=== PATIENT | female | born 1960 | race Asian ===

== ENCOUNTER 2016-08-12 10:43 | Emergency (ER) | payer OTHER ==
[~2016-08-12] VITALS: Ht 162.6 cm; Wt 122.5 kg
[~2016-08-12 10:43] MED LIST: ACTOS15 MG OR; AMOX500C85 PO; BENICAR HCT1 TA1 PO; DICL1GEL2 TOP; DULO30CA OR; KETOROLAC15 MG/ML IJ; LORCET OR; MEDROL DOSEPAK4 MG OR; PRINIVIL10 MG OR; RANI150T78 PO; TRIBENZO1 PO; TRIBENZO4 PO; ULTRAM50 MG OR
[2016-08-12] MEDS ORDERED: METOPROLOL25 M1 OR (11:07)
[2016-08-12 11:34] LABS: PLATELET COUNT 177 K/uL (152-353)
[2016-08-12 11:37] LABS: POTASSIUM 3.5 mmol/L (3.6-5.2); SODIUM 137 mmol/L (136-145)
[2016-08-12 13:08] VITALS: BP 140/86; TEMP 98
== END 2016-08-12 13:08 | disposition home or self-care (01) ==
LOC: ED 10:43
DX: J20.9 Acute bronchitis, unspecified (principal)
CPT/HCPCS: 36415; 80053; 83880; 85027; 87081; 87804; 87880; 99283

== ENCOUNTER 2016-08-16 15:52 | Outpatient (CLI) | payer OTHER ==
[~2016-08-16 15:52] MED LIST changes: +METOPROLOL25 M1 OR
[2016-08-16 16:45] LABS: PLATELET COUNT 210 K/uL (152-353)
[2016-08-16 17:09] LABS: POTASSIUM 3.7 mmol/L (3.6-5.2); SODIUM 139 mmol/L (136-145)
== END 2016-08-16 19:17 | disposition home or self-care (01) ==
LOC: LAB 15:52
PROVIDERS: Nurse Practitioner Family
DX: I10 Essential (primary) hypertension (principal); E11.59 Type 2 diabetes mellitus with other circulatory complications
CPT/HCPCS: 80053; 80061; 83036; 84439; 84443; 85027

== ENCOUNTER 2016-09-07 09:21 | Outpatient (CLI) | payer OTHER | END 2016-09-07 19:05 | disposition home or self-care (01) | LOC: MAMMO 09:21 | DX: Z12.31 Encounter for screening mammogram for malignant neoplasm of breast (principal) | CPT/HCPCS: G0202-TC ==

== ENCOUNTER 2016-10-04 12:20 | Outpatient (CLI) | payer OTHER | END 2016-10-04 13:30 | disposition home or self-care (01) | LOC: RAD 12:20 | DX: R05 Cough (principal); E11.9 Type 2 diabetes mellitus without complications ==

== ENCOUNTER 2016-10-05 14:19 | Outpatient (CLI) | payer OTHER ==
[2016-10-05 15:16] LABS: PLATELET COUNT 191 K/uL (152-353)
[2016-10-05 17:08] LABS: POTASSIUM 4.2 mmol/L (3.6-5.2); SODIUM 139 mmol/L (136-145)
== END 2016-10-05 15:30 | disposition home or self-care (01) ==
LOC: MAMMO 14:19 → LAB 14:19 → MAMMO 15:30
PROVIDERS: Nurse Practitioner Family
DX: E11.9 Type 2 diabetes mellitus without complications (principal); I10 Essential (primary) hypertension; E66.01 Morbid (severe) obesity due to excess calories; K21.9 Gastro-esophageal reflux disease without esophagitis; E55.9 Vitamin D deficiency, unspecified; R92.8 Other abnormal and inconclusive findings on diagnostic imaging of breast
CPT/HCPCS: 80053; 80061; 81000; 82043; 82306; 82570; 83036; 83735; 84439; 84443; 84550; 85027; G0204-TC

== ENCOUNTER 2016-10-09 09:17 | Emergency (ER) | payer OTHER ==
[~2016-10-09] VITALS: Ht 165.1 cm; Wt 122.5 kg
[2016-10-09 09:25] VITALS: TEMP 98.6
[2016-10-09] MEDS ORDERED: CARAFATE1 GM PO (09:43)
[2016-10-09] MEDS ORDERED: NEURONTIN 100M100 MG OR (09:44)
[2016-10-09] MEDS ORDERED: CEFDINIR300 MG OR (09:56)
[2016-10-09 10:52] LABS: PARTIAL THROMBOPLASTIN TIME 24.4 SECONDS (24.5-33.6)
[2016-10-09 10:54] LABS: POTASSIUM 3.6 mmol/L (3.6-5.2); SODIUM 139 mmol/L (136-145)
[2016-10-09 10:57] LABS: PLATELET COUNT 179 K/uL (152-353)
[2016-10-09 12:23] VITALS: BP 138/82
== END 2016-10-09 12:23 | disposition home or self-care (01) ==
LOC: ED 09:17
DX: K21.9 Gastro-esophageal reflux disease without esophagitis (principal); K22.4 Dyskinesia of esophagus
CPT/HCPCS: 36591; 80053; 82550; 84484; 85027; 85610; 85730; 93005; 99283; J1885

== ENCOUNTER 2016-11-23 08:10 | Outpatient (CLI) | payer OTHER ==
[~2016-11-23 08:10] MED LIST changes: +CARAFATE1 GM PO; +CEFDINIR300 MG OR; +NEURONTIN 100M100 MG OR
== END 2016-11-23 19:30 | disposition home or self-care (01) ==
LOC: RAD 08:10
DX: K44.9 Diaphragmatic hernia without obstruction or gangrene (principal); R10.13 Epigastric pain; K21.9 Gastro-esophageal reflux disease without esophagitis; R13.12 Dysphagia, oropharyngeal phase

== ENCOUNTER 2016-12-08 14:03 | Outpatient (CLI) | payer OTHER ==
[2016-12-08 14:34] LABS: PLATELET COUNT 191 K/uL (152-353)
[2016-12-08 15:09] LABS: POTASSIUM 3.9 mmol/L (3.6-5.2); SODIUM 138 mmol/L (136-145)
== END 2016-12-08 15:05 | disposition home or self-care (01) ==
LOC: LAB 14:03
PROVIDERS: Nurse Practitioner Family
DX: E11.59 Type 2 diabetes mellitus with other circulatory complications (principal); I10 Essential (primary) hypertension; E55.9 Vitamin D deficiency, unspecified; K21.9 Gastro-esophageal reflux disease without esophagitis; E66.01 Morbid (severe) obesity due to excess calories; E11.9 Type 2 diabetes mellitus without complications; Z79.899 Other long term (current) drug therapy; Z51.81 Encounter for therapeutic drug level monitoring
CPT/HCPCS: 80053; 80061; 82306; 82607; 83036; 84436; 84443; 85027

== ENCOUNTER 2017-03-13 10:18 | Outpatient (CLI) | payer OTHER ==
[2017-03-13 10:45] LABS: PLATELET COUNT 161 K/uL (152-353)
[2017-03-13 11:26] LABS: POTASSIUM 3.4 mmol/L (3.6-5.2); SODIUM 138 mmol/L (136-145)
== END 2017-03-13 11:40 | disposition home or self-care (01) ==
LOC: LABW 10:18
PROVIDERS: Podiatrist
DX: Z01.810 Encounter for preprocedural cardiovascular examination (principal); Z01.811 Encounter for preprocedural respiratory examination; Z01.812 Encounter for preprocedural laboratory examination; E11.9 Type 2 diabetes mellitus without complications
CPT/HCPCS: 36415; 80053; 83036; 85027; 93005

== ENCOUNTER 2017-09-09 21:40 | Emergency (ER) | payer OTHER ==
[~2017-09-09] VITALS: Ht 162.6 cm; Wt 77.1 kg
[2017-09-09] MEDS ORDERED: HYDR10TA47A PO (22:12)
[2017-09-09] MEDS ORDERED: FLONASE AL50 MCG/ACT (22:13)
[2017-09-09] MEDS ORDERED: NEURONTIN800 MG PO (22:14)
[2017-09-09 23:25] VITALS: BP 143/67; TEMP 97.9
== END 2017-09-09 23:26 | disposition home or self-care (01) ==
LOC: ED 21:40
DX: M17.12 Unilateral primary osteoarthritis, left knee (principal); M19.072 Primary osteoarthritis, left ankle and foot
CPT/HCPCS: 99283

== ENCOUNTER 2018-06-21 08:04 | Outpatient (CLI) | payer OTHER ==
[~2018-06-21 08:04] MED LIST changes: +FLONASE AL50 MCG/ACT; +HYDR10TA47A PO; +NEURONTIN800 MG PO
[2018-06-21 08:50] LABS: POTASSIUM 3.6 mmol/L (3.6-5.2)
[2018-06-21 08:53] LABS: PLATELET COUNT 190 K/uL (152-353)
== END 2018-06-21 19:22 | disposition home or self-care (01) ==
LOC: LABW 08:04
PROVIDERS: Podiatrist
DX: E11.41 Type 2 diabetes mellitus with diabetic mononeuropathy (principal); Z01.810 Encounter for preprocedural cardiovascular examination; Z01.811 Encounter for preprocedural respiratory examination; Z01.812 Encounter for preprocedural laboratory examination; I10 Essential (primary) hypertension; E55.9 Vitamin D deficiency, unspecified; K21.0 Gastro-esophageal reflux disease with esophagitis; M10.9 Gout, unspecified
CPT/HCPCS: 36415; 80053; 80061; 81000; 82306; 83036; 83735; 84439; 84443; 84550; 85027; 85660; 93005

== ENCOUNTER 2018-08-29 16:40 | Observation (INO) | payer OTHER ==
[~2018-08-29] VITALS: Ht 162.6 cm; Wt 114.5 kg
[2018-08-29 17:46] LABS: PLATELET COUNT 199 K/uL (152-353)
[2018-08-29] MEDS ORDERED: NEURONTIN800 MG PO (17:52)
[2018-08-29] MEDS ORDERED: HYDROCODONE BIT1 TA2 PO (17:53)
[2018-08-29] MEDS ORDERED: ERYTOIN IO (17:58)
[2018-08-29] MEDS ORDERED: TRIBENZO4 PO (18:00)
[2018-08-29 18:01] LABS: POTASSIUM 3.3 mmol/L (3.6-5.2)
[2018-08-29] MEDS ORDERED: TRAMADOL HYDROC50 MG PO (18:01)
[2018-08-29] MEDS ORDERED: METOPROLOL25 M1 PO (18:01)
[2018-08-29 18:14] VITALS: BP 119/72; TEMP 99.9; Ht 162.6 cm; Wt 114.5 kg
[2018-08-29 20:00] VITALS: BP 115/80; TEMP 100.4
[2018-08-30] VITALS: BP 119/82; TEMP 98.6
[2018-08-30 04:00] VITALS: BP 121/76; TEMP 99.1
[2018-08-30 05:48] LABS: PLATELET COUNT 167 K/uL (152-353)
[2018-08-30 06:32] LABS: POTASSIUM 2.8 mmol/L (3.6-5.2)
[2018-08-30 08:00] VITALS: BP 122/77; TEMP 98.8
[2018-08-30 12:00] VITALS: BP 120/74; TEMP 98.3
[2018-08-30 16:00] VITALS: BP 107/71; TEMP 98.6
== END 2018-08-30 16:35 | disposition home or self-care (01) ==
LOC: MED/SURG 16:40
PROVIDERS: ADMIT Family Medicine
DX: K52.9 Noninfective gastroenteritis and colitis, unspecified (principal); E86.0 Dehydration; R10.9 Unspecified abdominal pain; J20.9 Acute bronchitis, unspecified; I10 Essential (primary) hypertension; E78.5 Hyperlipidemia, unspecified; E11.9 Type 2 diabetes mellitus without complications; Z79.899 Other long term (current) drug therapy
CPT/HCPCS: 36415; 36591; 74022; 80053; 81000; 82272; 82948; 83630; 84132; 85027; 87040; 87324; 87328; 87329; 87449; 96361; 96365; 96375; 99220; G0378; G0379; J1956; J3490

== ENCOUNTER 2018-10-15 09:13 | Outpatient (CLI) | payer OTHER ==
[~2018-10-15 09:13] MED LIST changes: +ERYTOIN IO; +HYDROCODONE BIT1 TA2 PO; +METOPROLOL25 M1 PO; +TRAMADOL HYDROC50 MG PO
== END 2018-10-15 19:16 | disposition home or self-care (01) ==
LOC: MAMMO 09:13
DX: Z12.31 Encounter for screening mammogram for malignant neoplasm of breast (principal)

== ENCOUNTER 2018-10-19 19:50 | Emergency (ER) | payer OTHER ==
[~2018-10-19] VITALS: Ht 162.6 cm; Wt 114.3 kg
[2018-10-19 19:50] VITALS: TEMP 97.2
[2018-10-19 21:21] VITALS: BP 143/97
== END 2018-10-19 21:24 | disposition home or self-care (01) ==
LOC: ED 19:50
DX: J40 Bronchitis, not specified as acute or chronic (principal)
CPT/HCPCS: 87502; 93005; 99283

== ENCOUNTER 2018-12-04 16:20 | Outpatient (CLI) | payer OTHER | END 2018-12-04 19:50 | disposition home or self-care (01) | LOC: US 16:20 | DX: R60.0 Localized edema (principal) ==

== ENCOUNTER 2019-01-22 08:34 | Outpatient (CLI) | payer OTHER | END 2019-01-22 23:59 | disposition home or self-care (01) | LOC: CT 08:34 | DX: R06.02 Shortness of breath (principal); R04.2 Hemoptysis ==

== ENCOUNTER 2019-01-24 14:07 | Outpatient (CLI) | payer OTHER | END 2019-01-24 22:38 | disposition home or self-care (01) | LOC: NM 14:07 | DX: R06.02 Shortness of breath (principal); R04.2 Hemoptysis | CPT/HCPCS: A9540; A9567 ==

== ENCOUNTER 2019-06-14 13:16 | Outpatient (CLI) | payer OTHER ==
[2019-06-14 14:31] LABS: PLATELET COUNT 195 K/uL (152-353)
[2019-06-14 14:49] LABS: POTASSIUM 3.5 mmol/L (3.6-5.2)
== END 2019-06-14 19:54 | disposition home or self-care (01) ==
LOC: LABW 13:16
PROVIDERS: Family Medicine
DX: M54.89 Other dorsalgia (principal); R51 Headache; I10 Essential (primary) hypertension; K21.9 Gastro-esophageal reflux disease without esophagitis; E11.40 Type 2 diabetes mellitus with diabetic neuropathy, unspecified; I25.10 Atherosclerotic heart disease of native coronary artery without angina pectoris; N95.1 Menopausal and female climacteric states; E55.9 Vitamin D deficiency, unspecified
CPT/HCPCS: 36415; 80053; 80061; 81000; 82306; 83036; 83735; 84402; 84403; 84439; 84443; 84550; 85027

== ENCOUNTER 2019-08-08 19:15 | Emergency (ER) | payer OTHER ==
[~2019-08-08] VITALS: Ht 162.6 cm; Wt 114.3 kg
[2019-08-08 19:20] VITALS: TEMP 97.9
[2019-08-08 20:01] VITALS: BP 129/88
== END 2019-08-08 20:04 | disposition home or self-care (01) ==
LOC: ED 19:15
DX: M17.11 Unilateral primary osteoarthritis, right knee (principal); M25.561 Pain in right knee; G89.29 Other chronic pain
CPT/HCPCS: 96372; 99283; J1885; J2930

== ENCOUNTER 2019-12-11 12:32 | Outpatient (CLI) | payer OTHER ==
[2019-12-11 13:18] LABS: PLATELET COUNT 201 K/uL (152-353)
[2019-12-11 18:02] LABS: POTASSIUM 3.5 mmol/L (3.6-5.2)
== END 2019-12-11 20:26 | disposition home or self-care (01) ==
LOC: LABW 12:32
PROVIDERS: Family Medicine
DX: E11.9 Type 2 diabetes mellitus without complications (principal); K21.9 Gastro-esophageal reflux disease without esophagitis; J45.909 Unspecified asthma, uncomplicated; I27.20 Pulmonary hypertension, unspecified; G47.33 Obstructive sleep apnea (adult) (pediatric); E55.9 Vitamin D deficiency, unspecified; G89.4 Chronic pain syndrome; I11.9 Hypertensive heart disease without heart failure
CPT/HCPCS: 36415; 80053; 80061; 81000; 82306; 83036; 83735; 84439; 84443; 85027

== ENCOUNTER 2019-12-24 08:23 | Outpatient (CLI) | payer OTHER | END 2019-12-24 21:21 | disposition home or self-care (01) | LOC: LAB 08:23 | DX: Z20.828 Contact with and (suspected) exposure to other viral communicable diseases (principal) | CPT/HCPCS: 87635; G2023; U00003 ==

== ENCOUNTER 2020-03-06 12:17 | Outpatient (CLI) | payer OTHER | END 2020-03-06 19:04 | disposition home or self-care (01) | LOC: RAD 12:17 | DX: R05 Cough (principal); G89.4 Chronic pain syndrome; G47.33 Obstructive sleep apnea (adult) (pediatric) ==

== ENCOUNTER 2020-03-28 19:46 | Emergency (ER) | payer OTHER ==
[~2020-03-28] VITALS: Ht 162.6 cm; Wt 122.5 kg
[2020-03-28 20:47] LABS: PLATELET COUNT 123 K/uL (152-353)
[2020-03-28 20:54] LABS: POTASSIUM 3.6 mmol/L (3.6-5.2)
[2020-03-28 22:29] VITALS: BP 144/86; TEMP 97.9
== END 2020-03-28 22:29 | disposition home or self-care (01) ==
LOC: ED 19:46
PROVIDERS: Family Medicine
DX: J20.9 Acute bronchitis, unspecified (principal); U07.1 COVID-19
CPT/HCPCS: 36415; 80053; 82150; 83605; 83690; 85027; 87635; 96360; 99284; U0003

== ENCOUNTER 2020-04-20 16:05 | Outpatient (CLI) | payer OTHER | END 2020-04-20 18:58 | disposition home or self-care (01) | LOC: RAD 16:05 | PROVIDERS: ATTEND Family Medicine | DX: M25.561 Pain in right knee (principal); E66.01 Morbid (severe) obesity due to excess calories; R05 Cough; K21.9 Gastro-esophageal reflux disease without esophagitis; J45.909 Unspecified asthma, uncomplicated ==

== ENCOUNTER 2020-05-05 12:35 | Emergency (ER) | payer OTHER ==
[~2020-05-05] VITALS: Ht 162.6 cm; Wt 115.7 kg
[2020-05-05 12:42] VITALS: TEMP 98.9
[2020-05-05 14:53] VITALS: BP 118/62
== END 2020-05-05 14:53 | disposition home or self-care (01) ==
LOC: ED 12:35
DX: M51.36 Other intervertebral disc degeneration, lumbar region (principal); M47.896 Other spondylosis, lumbar region; M54.5 Low back pain
CPT/HCPCS: 81000; 96372; 99283; J2175

== ENCOUNTER 2020-05-20 09:37 | Outpatient (CLI) | payer OTHER | END 2020-05-20 19:54 | disposition home or self-care (01) | LOC: CT 09:37 | PROVIDERS: ATTEND Family Medicine | DX: R05 Cough (principal); J45.909 Unspecified asthma, uncomplicated; M25.519 Pain in unspecified shoulder; E66.01 Morbid (severe) obesity due to excess calories | CPT/HCPCS: 36415; 82565; 84520; Q9963 ==

== ENCOUNTER 2020-10-15 11:10 | Outpatient (CLI) | payer OTHER | END 2020-10-15 22:26 | disposition home or self-care (01) | LOC: LABW 11:10 | PROVIDERS: ATTEND Internal Medicine | DX: R05 Cough (principal) | CPT/HCPCS: 87070; 87205 ==

== ENCOUNTER 2021-01-08 07:54 | Outpatient (CLI) | payer OTHER | END 2021-01-08 23:03 | disposition home or self-care (01) | LOC: LAB 07:54 | PROVIDERS: ATTEND Family Medicine | DX: Z20.822 Contact with and (suspected) exposure to COVID-19 (principal) | CPT/HCPCS: 87635; G2023; U0003 ==

== ENCOUNTER 2021-01-14 11:13 | Outpatient (CLI) | payer OTHER | END 2021-01-14 19:37 | disposition home or self-care (01) | LOC: LABW 11:13 | PROVIDERS: ATTEND Internal Medicine | DX: J47.9 Bronchiectasis, uncomplicated (principal) | CPT/HCPCS: 36415; 82784; 82785; 86430 ==

== ENCOUNTER 2021-01-15 15:05 | Outpatient (CLI) | payer OTHER | END 2021-01-15 19:10 | disposition home or self-care (01) | LOC: LAB 15:05 | PROVIDERS: ATTEND Internal Medicine | DX: J47.9 Bronchiectasis, uncomplicated (principal) | CPT/HCPCS: 87070; 87205 ==

== ENCOUNTER 2021-04-06 10:33 | Outpatient (CLI) | payer OTHER ==
[2021-04-06 11:02] LABS: PLATELET COUNT 193 K/uL (152-353)
== END 2021-04-06 19:01 | disposition home or self-care (01) ==
LOC: LABW 10:33
PROVIDERS: ATTEND Nurse Practitioner Family
DX: R05.3 Chronic cough (principal)
CPT/HCPCS: 36415; 82785; 85027

== ENCOUNTER 2021-08-21 10:40 | Emergency (ER) | payer OTHER ==
[~2021-08-21] VITALS: Ht 162.6 cm; Wt 108.0 kg
[2021-08-21 10:51] VITALS: TEMP 97.8
[2021-08-21 11:23] LABS: PLATELET COUNT 181 K/uL (152-353)
[2021-08-21 11:39] LABS: POTASSIUM 4.4 mmol/L (3.6-5.2)
[2021-08-21 11:45] LABS: PARTIAL THROMBOPLASTIN TIME 23.2 SECONDS (24.5-33.6)
[2021-08-21 12:45] VITALS: BP 136/84
== END 2021-08-21 12:45 | disposition home or self-care (01) ==
LOC: ED 10:40
PROVIDERS: Family Medicine
DX: R07.89 Other chest pain (principal); M79.18 Myalgia, other site; I10 Essential (primary) hypertension
CPT/HCPCS: 36415; 80053; 82550; 84484; 85027; 85610; 85730; 93005; 96374; 96375; 99284; J1885; J2405

== ENCOUNTER 2021-09-07 15:22 | Emergency (ER) | payer OTHER ==
[~2021-09-07] VITALS: Ht 162.6 cm; Wt 108.9 kg
[2021-09-07 16:13] LABS: PLATELET COUNT 175 K/uL (152-353)
[2021-09-07 16:19] LABS: POTASSIUM 3.4 mmol/L (3.6-5.2)
[2021-09-07 19:26] VITALS: BP 120/71; TEMP 98
== END 2021-09-07 19:30 | disposition home or self-care (01) ==
LOC: ED 15:22
PROVIDERS: Emergency Medicine
DX: M79.605 Pain in left leg (principal); E11.9 Type 2 diabetes mellitus without complications; R60.0 Localized edema
CPT/HCPCS: 36600; 80053; 81000; 82805; 83880; 84443; 84484; 85027; 85379; 85610; 93005; 99283

== ENCOUNTER 2021-09-08 14:57 | Observation (INO) | payer OTHER ==
[~2021-09-08] VITALS: Ht 162.6 cm; Wt 113.5 kg
[2021-09-08 16:52] VITALS: BP 99/59; TEMP 98.4; Ht 162.6 cm; Wt 113.5 kg
[2021-09-08 16:59] LABS: POTASSIUM 3.4 mmol/L (3.6-5.2)
[2021-09-08 19:53] VITALS: BP 86/50; TEMP 98.3
[2021-09-08 23:53] VITALS: BP 97/58; TEMP 98.2
[2021-09-09 04:07] VITALS: BP 95/51; TEMP 98.3
[2021-09-09 05:17] LABS: PLATELET COUNT 160 K/uL (152-353)
[2021-09-09 05:29] LABS: POTASSIUM 3.9 mmol/L (3.6-5.2)
[2021-09-09 08:00] VITALS: BP 101/56; TEMP 98.1
[2021-09-09] MEDS ORDERED: HYDR10TA47 PO (08:16)
[2021-09-09] MEDS ORDERED: PANTOPRAZOLE 40MG TA PO (08:18)
[2021-09-09] MEDS ORDERED: CRESTOR20 MG PO (08:18)
[2021-09-09] MEDS ORDERED: METOCLOPRAM10 MG PO (08:19)
[2021-09-09] MEDS ORDERED: HYDR200T3 PO (08:19)
[2021-09-09 12:00] VITALS: BP 111/61; TEMP 98.3
[2021-09-09 16:00] VITALS: BP 106/70; TEMP 98.1
[2021-09-09 19:56] VITALS: BP 110/63; TEMP 98.4
[2021-09-10] VITALS: BP 108/60; TEMP 98.01
[2021-09-10 04:04] VITALS: BP 106/68; TEMP 98.3
[2021-09-10 04:55] LABS: PLATELET COUNT 174 K/uL (152-353)
[2021-09-10 08:00] VITALS: BP 100/76; TEMP 97.9
[2021-09-10] MEDS ORDERED: FURO40TA93 PO (09:53)
[2021-09-10] MEDS ORDERED: K-TAB20 MEQ PO (09:55)
== END 2021-09-10 10:00 | disposition home or self-care (01) ==
LOC: MED/SURG 14:57
PROVIDERS: ADMIT Family Medicine; ATTEND Family Medicine
DX: R60.0 Localized edema (principal); R53.1 Weakness; M79.605 Pain in left leg; M79.604 Pain in right leg; I10 Essential (primary) hypertension; E11.9 Type 2 diabetes mellitus without complications; E78.49 Other hyperlipidemia; I25.10 Atherosclerotic heart disease of native coronary artery without angina pectoris; I95.89 Other hypotension; R13.19 Other dysphagia; D64.89 Other specified anemias; E88.09 Other disorders of plasma-protein metabolism, not elsewhere classified; I73.9 Peripheral vascular disease, unspecified
CPT/HCPCS: 36415; 80053; 81000; 82306; 82550; 82652; 82728; 82948; 83036; 83550; 83735; 85027; 87635; 96372; 96374; 96375; 99220; G0378; G0379; J1650; J1940; J2405; U0003

== ENCOUNTER 2021-12-29 11:43 | Outpatient (CLI) | payer OTHER ==
[~2021-12-29 11:43] MED LIST changes: +CRESTOR20 MG PO; +FURO40TA93 PO; +HYDR10TA47 PO; +HYDR200T3 PO; +K-TAB20 MEQ PO; +METOCLOPRAM10 MG PO; +PANTOPRAZOLE 40MG TA PO
== END 2021-12-29 18:57 | disposition home or self-care (01) ==
LOC: US 11:43
PROVIDERS: ATTEND Podiatrist
DX: M79.604 Pain in right leg (principal)

== ENCOUNTER 2022-02-01 15:03 | Outpatient (CLI) | payer OTHER | END 2022-02-01 18:53 | disposition home or self-care (01) | LOC: MRI 15:03 | PROVIDERS: ATTEND Psychiatry & Neurology Neurology | DX: G43.019 Migraine without aura, intractable, without status migrainosus (principal) | CPT/HCPCS: 36415; 82565; 84520; A9576 ==

== ENCOUNTER 2022-06-19 10:40 | Emergency (ER) | payer OTHER ==
[~2022-06-19] VITALS: Ht 162.6 cm; Wt 106.6 kg
[2022-06-19 10:45] VITALS: BP 126/89; TEMP 98.4
== END 2022-06-19 11:28 | disposition home or self-care (01) ==
LOC: ED 10:40
DX: M54.59 Other low back pain (principal)
CPT/HCPCS: 96372; 99282; J1100; J1885

== ENCOUNTER 2022-06-21 11:58 | Outpatient (CLI) | payer OTHER | END 2022-06-21 19:37 | disposition home or self-care (01) | LOC: RAD 11:58 | PROVIDERS: ATTEND Family Medicine | DX: M54.89 Other dorsalgia (principal); M25.551 Pain in right hip ==

== ENCOUNTER 2022-07-21 09:18 | Outpatient (CLI) | payer OTHER ==
[2022-07-21 09:40] LABS: PLATELET COUNT 169 K/uL (152-353)
[2022-07-21 10:04] LABS: POTASSIUM 3.6 mmol/L (3.6-5.2)
== END 2022-07-21 22:26 | disposition home or self-care (01) ==
LOC: LABW 09:18
PROVIDERS: ATTEND Nuclear Medicine Nuclear Cardiology
DX: R04.2 Hemoptysis (principal); Z90.09 Acquired absence of other part of head and neck; I50.32 Chronic diastolic (congestive) heart failure; I11.0 Hypertensive heart disease with heart failure; Z79.899 Other long term (current) drug therapy
CPT/HCPCS: 36415; 80053; 80061; 83735; 84443; 85027

== ENCOUNTER 2022-10-19 17:10 | Outpatient (CLI) | payer OTHER ==
[2022-10-19 18:21] LABS: PLATELET COUNT 188 K/uL (152-353)
[2022-10-19 18:37] LABS: POTASSIUM 3.3 mmol/L (3.6-5.2)
== END 2022-10-19 19:12 | disposition home or self-care (01) ==
LOC: RAD 17:10
PROVIDERS: ATTEND Internal Medicine
DX: M06.4 Inflammatory polyarthropathy (principal); M79.643 Pain in unspecified hand; R06.02 Shortness of breath; Z79.899 Other long term (current) drug therapy
CPT/HCPCS: 36415; 80053; 81002; 82784; 85027; 86140; 86160; 87088